=== PATIENT | female | born 2000 | race Caucasian/White ===

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

== ENCOUNTER 2022-04-05 11:13 | Emergency (ER) | payer OTHER, SELFPAY ==
--- NOTE | 2022-04-05 11:19 | ED.URI ---
HPI - URI/Sore Throat General Chief Complaint: Upper Respiratory Infection Stated Complaint: white patches in throat Time Seen by Provider: 04/05/22 11:28 Source: patient, RN notes reviewed and old records reviewed Mode of arrival: ambulatory Limitations: no limitations History of Present Illness HPI Narrative: 22-year-old female who is 39 weeks presents to the [facility] with complaints of a sore throat. Had been evaluated at [facility] ER, [employer] yesterday and states that nothing was done for me. Reports that she tested negative for flu, strep, COVID in the ER. Reports that she did see her OB yesterday no complications with the . Is due to be induced this weekend. MD elicited complaint: sore throat Related Data Home Medications Medication Instructions Recorded Confirmed ondansetron 4 mg disintegrating 4 mg QID 04/05/22 04/05/22 tablet vits 75-iron 28 mg-folic 1 pkg PO DAILY 04/05/22 04/05/22 acid 800 mcg-omega3 440 mg oral pack Allergies Allergy/AdvReac Type Severity Reaction Status Date / Time trazodone Allergy Intermediate Swelling Verified 04/05/22 12:07 Review of Systems Review of Systems: All systems reviewed & are unremarkable except as noted in HPI and below Constitutional: Constitutional: Reports no additional constitutional complaints, Denies chills and Denies fever(s) Eyes: Eyes: Reports no additional eye complaints ENT: Reports as per HPI and Reports sore throat Cardiovascular: Cardiovascular: Reports no additional cardiovascular complaints Respiratory: Respiratory: Reports no additional respiratory complaints Gastrointestinal: Gastrointestinal: Reports no additional gastrointestinal complaints Musculoskeletal: Musculoskeletal: Reports no additional musculoskeletal complaints Integumentary/Breasts: Skin/Breast: Reports system reviewed and no additional complaints, except as docu Neurologic: Reports system reviewed and no additional complaints, except as documented Psychiatric: Psychiatric: Reports no additional psychiatric complaints Allergic/Immunologic: Allergic/Immunologic: Reports no additional allergic/immunologic complaints PMFSH Past Medical History Medical History Anxiety Depression Insomnia PTSD (post-traumatic stress disorder) Self-injurious behavior Surgical History Surgical History History of dilation and curettage Social History Social History Smoking status: Current every day smoker Tobacco type: cigarettes and e-cigarettes/vaping Alcohol intake: current Substance use: current Substance use type: marijuana Comments At the time of my signature, I reviewed and agree with the nursing past medical, surgical, social, and family history. There is no relevant family history pertinent to the patient complaint. Exam Const: General: healthy appearing, no acute distress and alert Nutritional Appearance: well nourished Orientation/consciousness: patient oriented x3 Limitations: no limitations HENMT: Head: normal to inspection Ears: hearing grossly normal bilaterally, external ears normal and TM's normal bilaterally General nose exam: Normal external nose present, Normal nares present and Normal nasal mucous membranes and turbinates present Mouth: Yes Normal oral and palatal mucosa present Throat: tonsils normal, uvula midline, posterior oropharynx abnormal other (white patches roof of mouth and left tonsil); no edema and no erythema and no uvular edema Throat image: 1. patchy white areas without increased erythema or swelling 2. Left tonsil white patchy areas without increased erythema or swelling Eyes: General: appearance normal, both eyes and all related structures Conjunctivae: conjunctivae normal Pupils: Equal, round and reactive pupils present Neck: Neck: normal visual inspection, no lymphad
[2022-04-05 11:28] VITALS: BP 117/70; PULSE 103; RESP 18; TEMP 36.4; O2SAT 98
== END 2022-04-05 12:16 | disposition home or self-care (01) ==
PROVIDERS: Emergency Provider Nurse Practitioner; PCP Obstetrics & Gynecology
DX: O90.89 Other complications of the puerperium, not elsewhere classified (principal); B37.0 Candidal stomatitis; O99.330 Smoking (tobacco) complicating pregnancy, unspecified trimester; Z3A.39 39 weeks gestation of pregnancy; F17.290 Nicotine dependence, other tobacco product, uncomplicated
CPT/HCPCS: 36416; 86308; 87081; 87880; 99213; G0463

== ENCOUNTER 2022-04-12 17:50 | Observation (INO) | payer OTHER, SELFPAY ==
[2022-04-12] VITALS (7 sets, daily range): BP systolic 114–136; BP diastolic 74–93; PULSE 92–116; BMI 36.8
[2022-04-12] MEDS: LACTATED RINGERS 1,000 ML 999 ML IV CONT (19:24)
--- NOTE | 2022-04-12 19:35 | OBADM ---
This patient, Dorcas Queen, admitted to the OB room Labor/Delivery/Recovery 106 for observation. Patient/family oriented to hospital policies and general routines including ID bracelet, bed and alarms, visiting hours, pain management, procedures, bathroom and other care routines, personal items, smoking policy, room service/diet, and visiting hours. Patient/Family are encouraged to report perceived risks to care and to ask questions if they do not understand what they are told or what they should do.
--- NOTE | 2022-05-14 08:16 | PM.OBTRLD ---
OB - Triage/Final Diagnosis Visit Information Comments/Additional reasons for admission: I have assessed the risk for this patient, Dorcas Queen, and determined that she would benefit from observation care. Final Diagnosis (1) False labor: Code(s): O47.9 - False labor, unspecified Status: Acute
== END 2022-04-12 20:49 | disposition home or self-care (01) ==
PROVIDERS: Admitting Provider Obstetrics & Gynecology; Visit Provider Obstetrics & Gynecology
DX: O47.1 False labor at or after 37 completed weeks of gestation (principal); Z3A.39 39 weeks gestation of pregnancy
CPT/HCPCS: 84112; G0378; G0379; J7120

== ENCOUNTER 2022-04-13 15:38 | Inpatient (IN) | payer OTHER, SELFPAY ==
[2022-04-13] VITALS (114 sets, daily range): BP systolic 86–141; BP diastolic 53–98; PULSE 95–142; RESP 16–18; TEMP 36.9–37.1; O2SAT 94–100; BMI 37.0
--- NOTE | 2022-04-13 16:18 | LDADM ---
This patient, Dorcas Queen, was admitted to Labor/Delivery/Recovery 104 on 04/13/22 at 15:38. Plans for labor, pain management and were discussed with patient. Patient/family oriented to hospital policies and general routines including ID bracelet, bed and alarms, visiting hours, pain management, procedures, bathroom and other care routines, personal items, smoking policy, room service/diet and guest tray routines, security routines, and visiting hours. Patient/Family are encouraged to report perceived risks to care and to ask questions if they do not understand what they are told or what they should do. See OBIX for further documentation.
[2022-04-13 16:28] LABS: Basophils Absolute Auto 0.1 K/mm3 (0.0-0.1); Basophils Percent Auto 0.3 % (0.2-1.2); Eosinophils Absolute Auto 0.1 K/mm3 (0-0.3); Eosinophils Percent Auto 0.5 % (0-4.4); Hematocrit 38.6 % (37.0-47.0); Hemoglobin 13.2 g/dL (12.0-15.0); Immature Granulocyte Percent A 0.6 % (0-0.5); Lymphocytes Percent Auto 14.5 % (18.3-44.2); Mean Corpuscular HGB Conc 34.2 g/dl (32-36); Mean Corpuscular Hemoglobin 31.6 pg (26-34); Mean Corpuscular Volume 92.3 fl (80-100); Mean Platelet Volume 9.7 fl (7.4-10.4); Monocytes Absolute Auto 1.3 K/mm3 (0.1-0.6); Monocytes Percent Auto 7.5 % (2.6-8.5); Neutrophils Absolute Auto 13.2 K/mm3 (1.3-6.7); Neutrophils Percent Auto 76.6 % (45.5-73.1); Platelet Count Result 255 k/mm3 (150-375); Red Blood Count 4.18 M/mm3 (4.2-5.4); Red Cell Distribution Width 12.9 % (11.5-14.5); White Blood Count 17.2 K/mm3 (4.5-10.0)
[2022-04-13 16:44] LABS: Hemoglobin A1C 4.9 % (<5.7)
[2022-04-13] MEDS: LACTATED RINGERS 1,000 ML 125 ML IV CONT ×2 (17:04→19:44)
[2022-04-13] MEDS: OXYTOCIN 30 UNITS/NS 500 ML 30 UNITS/500 ML BAG 6 UNITS IV CONT (17:05)
[2022-04-13] MEDS: AMPICILLIN 2 GM/NS 100 ML 2 GM/100 ML BAG IVPB (17:05)
[2022-04-13 17:19] LABS: Glucose Point of Care 78 mg/dl (65-105)
[2022-04-13] MEDS: fentaNYL CITRATE INJ (*CRX) 100 MCG/2 ML VIAL 50 MCG IV PUSH ×2 (18:15→18:25)
--- NOTE | 2022-04-13 18:52 | WPDANESEPP ---
Anes - Eval Pre Procedure Procedure: labor epidural Date/Time: 04/13/22 18:52 Surgeon: miri Pre Op Diagnosis: Labor Patient Data Age: 22 Gender: F Height: 1.75 m Weight: 114 kg Last Vital Signs Temp 36.9 C 04/13/22 18:00 Pulse 110 H 04/13/22 18:30 BP 129/98 H 04/13/22 18:30 Pulse Ox 100 04/13/22 18:47 O2 Del Method Room Air 04/13/22 16:07 Allergies Allergy/AdvReac Type Severity Reaction Status Date / Time trazodone Allergy Intermediate Swelling Verified 04/12/22 18:33 Home Medications Medication Instructions Recorded Confirmed Type ondansetron 4 mg disintegrating 4 mg QID 04/05/22 04/05/22 History tablet vits 75-iron 28 mg-folic 1 pkg PO DAILY 04/05/22 04/05/22 History acid 800 mcg-omega3 440 mg oral pack Laboratory Tests 04/13/22 04/13/22 04/13/22 16:24 16:24 16:24 WBC 17.2 K/mm3 H K/mm3 (4.5-10.0) RBC 4.18 M/mm3 L M/mm3 (4.2-5.4) Hgb 13.2 g/dL g/dL (12.0-15.0) Hct 38.6 % % (37.0-47.0) MCV 92.3 fl fl (80-100) MCH 31.6 pg pg (26-34) MCHC 34.2 g/dl g/dl (32-36) RDW 12.9 % % (11.5-14.5) Plt Count 255 k/mm3 k/mm3 (150-375) MPV 9.7 fl fl (7.4-10.4) Immature Gran % (Auto) 0.6 % H % (0-0.5) Neut % (Auto) 76.6 % H % (45.5-73.1) Lymph % (Auto) 14.5 % L % (18.3-44.2) Marin % (Auto) 7.5 % % (2.6-8.5) Eos % (Auto) 0.5 % % (0-4.4) Baso % (Auto) 0.3 % % (0.2-1.2) Lymph # (Auto) 2.50 K/mm3 K/mm3 (0.9-3.2) Marin # (Auto) 1.3 K/mm3 H K/mm3 (0.1-0.6) Eos # (Auto) 0.1 K/mm3 K/mm3 (0-0.3) Baso # (Auto) 0.1 K/mm3 K/mm3 (0.0-0.1) Abs Immat Gran (auto) 0.10 K/mm3 H K/mm3 (0.00-0.031) Absolute Neuts (auto) 13.2 K/mm3 H K/mm3 (1.3-6.7) Absolute Nucleated RBC 0.0 K/mm3 K/mm3 (0.0-0.012) Nucleated RBC % 0.0 % % (0.0-0.2) POC Capillary Glucose Hemoglobin A1c RPR Pending Blood Type A Positive Antibody Screen Negative 04/13/22 04/13/22 16:24 17:16 WBC RBC Hgb Hct MCV MCH MCHC RDW Plt Count MPV Immature Gran % (Auto) Neut % (Auto) Lymph % (Auto) Marin % (Auto) Eos % (Auto) Baso % (Auto) Lymph # (Auto) Marin # (Auto) Eos # (Auto) Baso # (Auto) Abs Immat Gran (auto) Absolute Neuts (auto) Absolute Nucleated RBC Nucleated RBC % POC Capillary Glucose 78 mg/dl mg/dl (65-105) Hemoglobin A1c 4.9 % % (<5.7) RPR Blood Type Antibody Screen Patient hx anesthesia problems: none Family hx anesthesia problems: none Results Review: All pre-operative results and documents have been reviewed as part of the pre-operative evaluation. [facility] Past Medical History Medical History Anxiety Depression Insomnia PTSD (post-traumatic stress disorder) Self-injurious behavior Surgical History Surgical History History of dilation and curettage Social History Social History Smoking packs per day: 0.5 Smoking cigarettes per day: 10.0 Smoking status: Current every day smoker Tobacco type: cigarettes Alcohol intake: current Substance use: current Substance use type: marijuana Spiritual care concerns: No Exam Day of Procedure 04/13/22 18:52
[2022-04-13] MEDS: AMPICILLIN 1 GM/NS 50 ML 1 GM/50 ML BAG IVPB (21:14)
[2022-04-13 21:27] LABS: Glucose Point of Care 109 mg/dl (65-105)
[2022-04-13 21:49] LABS: Amphetamine Screen Urine Negative (Negative); Barbiturate Screen Urine Negative (Negative); Benzodiazepines Screen Urine Negative (Negative); Cannabinoid Screen Urine Positive (Negative); Cocaine Screen Urine Negative (Negative); Methadone Screen Urine Negative (Negative); Opiate Screen Urine Negative (Negative); Phencyclidine Screen Urine Negative (Negative)
[2022-04-14] VITALS (258 sets, daily range): BP systolic 89–137; BP diastolic 41–90; PULSE 79–139; RESP 15–24; TEMP 36.2–36.9; O2SAT 89–100
[2022-04-14] MEDS: diphenhydrAMINE HCl INJ 50 MG/ML VIAL 25 MG IV PUSH (00:29)
[2022-04-14] MEDS: AMPICILLIN 1 GM/NS 50 ML 1 GM/50 ML BAG IVPB ×5 (01:06→16:53)
[2022-04-14 01:19] LABS: Glucose Point of Care 89 mg/dl (65-105)
[2022-04-14] MEDS: CALCIUM CARBONATE (TUMS) 500 MG (200 MG ELEMENTAL) 1000 MG PO (02:40)
[2022-04-14] MEDS: CALCIUM CARBONATE (TUMS) 500 MG (200 MG ELEMENTAL) 1000 MG (03:00)
[2022-04-14] MEDS: LACTATED RINGERS 1,000 ML 125 ML IV CONT ×2 (03:35→15:28)
[2022-04-14] MEDS: ONDANSETRON INJ 4 MG/2 ML VIAL IV PUSH ×2 (03:35→17:06)
[2022-04-14 05:05] LABS: Glucose Point of Care 91 mg/dl (65-105)
[2022-04-14 09:12] LABS: Glucose Point of Care 114 mg/dl (65-105)
[2022-04-14 13:06] LABS: Glucose Point of Care 126 mg/dl (65-105)
[2022-04-14 17:04] LABS: Glucose Point of Care 87 mg/dl (65-105)
--- NOTE | 2022-04-14 19:09 | WPDANESEPP ---
Anes - Eval Pre Procedure Procedure: primary c/s Date/Time: 04/14/22 19:09 Surgeon: miri Pre Op Diagnosis: Labor Patient Data Age: 22 Gender: F Height: 1.75 m Weight: 114 kg Last Vital Signs Temp 36.4 C L 04/14/22 18:30 Pulse 113 H 04/14/22 18:19 Resp 16 04/14/22 05:11 BP 121/62 04/14/22 18:19 Pulse Ox 100 04/14/22 19:06 O2 Del Method Room Air 04/13/22 16:07 Allergies Allergy/AdvReac Type Severity Reaction Status Date / Time trazodone Allergy Intermediate Swelling Verified 04/12/22 18:33 Home Medications Medication Instructions Recorded Confirmed Type ondansetron 4 mg disintegrating 4 mg QID 04/05/22 04/05/22 History tablet vits 75-iron 28 mg-folic 1 pkg PO DAILY 04/05/22 04/05/22 History acid 800 mcg-omega3 440 mg oral pack Laboratory Tests 04/13/22 04/13/22 04/14/22 21:20 21:23 01:12 POC Capillary Glucose 109 mg/dl H mg/dl 89 mg/dl mg/dl (65-105) (65-105) Urine Opiates Screen Negative (Negative) Urine Methadone Screen Negative (Negative) Ur Barbiturates Screen Negative (Negative) Ur Phencyclidine Scrn Negative (Negative) Ur Amphetamine Screen Negative (Negative) U Benzodiazepines Scrn Negative (Negative) Urine Cocaine Screen Negative (Negative) U Cannabinoids Screen Positive A (Negative) 04/14/22 04/14/22 04/14/22 05:02 08:59 13:03 POC Capillary Glucose 91 mg/dl mg/dl 114 mg/dl H mg/dl 126 mg/dl H mg/dl (65-105) (65-105) (65-105) Urine Opiates Screen Urine Methadone Screen Ur Barbiturates Screen Ur Phencyclidine Scrn Ur Amphetamine Screen U Benzodiazepines Scrn Urine Cocaine Screen U Cannabinoids Screen 04/14/22 17:02 POC Capillary Glucose 87 mg/dl mg/dl (65-105) Urine Opiates Screen Urine Methadone Screen Ur Barbiturates Screen Ur Phencyclidine Scrn Ur Amphetamine Screen U Benzodiazepines Scrn Urine Cocaine Screen U Cannabinoids Screen Patient hx anesthesia problems: none Family hx anesthesia problems: none Results Review: All pre-operative results and documents have been reviewed as part of the pre-operative evaluation. PMFSH Past Medical History Medical History Anxiety Depression Insomnia PTSD (post-traumatic stress disorder) Self-injurious behavior Surgical History Surgical History History of dilation and curettage Social History Social History Smoking packs per day: 0.5 Smoking cigarettes per day: 10.0 Smoking status: Current every day smoker Tobacco type: cigarettes Alcohol intake: current Substance use: current Substance use type: marijuana Spiritual care concerns: No Exam Day of Procedure 04/14/22 19:09
--- NOTE | 2022-04-14 19:11 | PM.IMHP ---
H&P: HPI History of Present Illness Date/Time: 04/14/22 19:11 Chief Complaint: Term Narrative: this patient is a 22-year-old 1 at 40 weeks gestation at 40 weeks gestation who presented for spontaneous rupture membranes. Augmentation and initiation of labor was applied medically. Patient never got into active labor. The patient is requesting delivery. She denies any headache, blurry vision, epigastric pain. She denies any worsening of her swelling. She denies any chest pain or shortness of breath. She denies any nausea, vomiting, fever, chills. She understands risk of delivery. She understands that injuries may occur that result in hospitalization, more surgery, severe illness. She understands there is a risk of hemorrhage infection. Review of Systems Review of Systems: All systems reviewed & are unremarkable except as noted in HPI and below Constitutional: Constitutional: Denies chills, Denies fatigue, Denies fever(s) and Denies weakness Eyes: Eyes: Denies blurry vision, Denies change in vision, Denies loss of peripheral vision, Denies loss of vision, Denies other visual disturbances and Denies eye pain ENT: Denies vertigo, Denies dizziness, Denies hearing loss, Denies mouth pain, Denies nasal obstruction, Denies neck mass and Denies neck pain Cardiovascular: Cardiovascular: Denies chest pain, Denies diaphoresis, Denies syncope, Denies leg edema and Denies dyspnea Respiratory: Respiratory: Denies chest congestion, Denies cough, Denies hemoptysis, Denies dyspnea and Denies wheezing Gastrointestinal: Gastrointestinal: Denies abdominal pain, Denies constipation, Denies diarrhea, Denies nausea and Denies vomiting Genitourinary: Genitourinary: Denies hematuria, Denies change in libido, Denies nocturia, Denies genital lesions, Denies flank pain and Denies urinary urgency Musculoskeletal: Musculoskeletal: Denies abnormal gait, Denies back pain, Denies myalgias, Denies arthralgias, Denies joint swelling, Denies muscle weakness and Denies neck pain Integumentary/Breasts: Skin/Breast: Denies swelling, Denies breast pain, Denies breast mass, Denies dry skin, Denies nipple discharge, Denies unusual bruising and Denies jaundice Neurologic: Denies Neuro-related abnormal movements, Denies Abnormal speech present, Denies abnormal gait, Denies behavioral changes, Denies confusion, Denies vertigo, Denies dizziness, Denies syncope, Denies loss of vision, Denies memory loss, Denies convulsions and Denies weakness Psychiatric: Psychiatric: Denies abnormal sleep pattern, Denies behavioral changes, Denies change in libido, Denies confusion, Denies depression, Denies anhedonia and Denies memory loss Endocrine: Endocrine: Reports no additional endocrine complaints, Denies change in libido and Denies fatigue Hematologic/Lymphatic: Hematologic/Lymphatic: Reports no additional hematologic/lymphatic complaints Allergic/Immunologic: Allergic/Immunologic: Reports no additional allergic/immunologic complaints and Denies wheezing PMFSH Past Medical History Medical History Anxiety Depression Insomnia PTSD (post-traumatic stress disorder) Self-injurious behavior Surgical History Surgical History History of dilation and curettage Social History Social History Smoking packs per day: 0.5 Smoking cigarettes per day: 10.0 Smoking status: Current every day smoker Tobacco type: cigarettes Alcohol intake: current Substance use: current Substance use type: marijuana Spiritual care concerns: No Meds Home Medications and Allergies Home Medications Medication Instructions Recorded Confirmed Type ondansetron 4 mg disintegrating 4 mg QID 04/05/22 04/05/22 History tablet vits 75-iron 28 mg-folic 1 pkg PO DAILY 04/05/22 04/05/22 History acid 800 mcg-omega3 440 mg oral pack
--- NOTE | 2022-04-14 19:18 | WPDHPUPDATE1 ---
History and Physical Update Update Date/Time: 04/14/22 19:18 History and Physical has been reviewed, including an updated exam of the patient. There are NO changes in the patient's condition. Risks, benefits, and alternatives have been discussed and questions answered. Patient agrees to proceed with procedure.
[2022-04-14] MEDS: ceFAZolin 2 GM/D5W 50 ML 2 GM/50 ML BAG IVPB (19:30)
[2022-04-14] MEDS: OXYTOCIN 30 UNITS/NS 500 ML 30 UNITS/500 ML BAG 125 UNITS IV CONT (20:35)
--- NOTE | 2022-04-14 20:36 | P.OP_ITS ---
Procedure Note - Detailed Date of Procedure 04/14/22 Pre-op Diagnosis Labor , failed induction of labor Post-op Diagnosis Same Procedure Performed Low-transverse section Surgeon Nba Hernandez MD Anesthesia Spinal Indications failed induction of labor, patient preference Findings Normal gestational maternal anatomy, average size , normal Apgars. Description of Procedure The patient was taken the operating room. She was prepped and draped in dorsal supine position with a leftward tilt. This was done after spinal anesthetic was applied. A low-transverse skin incision was made and carried down till of the fascia with the knife. The fascial incision was made with the knife. The fascial incision was extended laterally with Zambrano scissors. The fascia was tented upward superiorly and inferiorly the rectus muscles were dissected off bluntly. The rectus muscles were the midline. The preperitoneal fat and peritoneum were dissected open bluntly at the superior aspect of the separa david rectus muscles. The peritoneal incision was extended superior and inferior with good position of bladder. The uterine incision was made with a scalpel down to the level of the amniotic cavity. The amniotic cavity was entered bluntly. The infant was delivered. The cord was clamped and cut and the was handed off to waiting pediatric staff. Cord bloods were obtained. The placenta was removed manually. The uterus was exteriorized. The uterus was cleared of all clots, debris and membranes. The uterus was closed in 0 Vicryl running lock fashion. An imbricating over a was placed along the incision line as well. The uterus was returned to the abdomen. The gutters were cleared of all clots and debris. The fascia was closed with 0 Vicryl running fashion. The subcutaneous tissue was irrigated pinpoint bleeders were cauterized. The skin was closed with subcuticular absorbable dm. The skin incision line was covered with glue. The patient tolerated the procedure well. She has taken recovery room in stable condition. Sponge lap and needle counts were correct x2. Complications No immediate complications Condition Stable Disposition PACU
[2022-04-14] MEDS: fentaNYL CITRATE INJ (*CRX) 100 MCG/2 ML VIAL 25 MCG IV PUSH ×7 (21:29→22:55)
--- NOTE | 2022-04-14 23:05 | PC.NURSE ---
Benadryl 25mg IVP given while in recovery.
--- NOTE | 2022-04-14 23:09 | PC.NURSE ---
Transferred to bed from stretcher with assist of 2 nurses and use of Maxi Air. Anxious, agitated, with clenched fists. Refused assessment. Educated on fundal checks and monitoring of vaginal bleeding . Stated, No one is touching me. I'm in too much pain. Time spent at bedside. Explained pain management and plan of care. Discussed interventions prior to completing them. Significant other and friend at bedside providing support.
--- NOTE | 2022-04-14 23:09 | ADMGEN ---
This patient, Dorcas Queen, was admitted to OB 2nd Floor Room 282-00. Patient/family oriented to hospital policies and general routines including ID bracelet, bed and alarms, visiting hours, pain management, procedures, bathroom and other care routines, personal items, smoking policy, room service/diet, and visiting hours. Information on how to activate the Rapid Response Team has been discussed. Patient/Family are encouraged to report perceived risks to care and to ask questions if they do not understand what they are told or what they should do.
[2022-04-14] MEDS: SIMETHICONE 80 MG TAB.CHEW (23:43)
[2022-04-14] MEDS: HYDROcodone/acetaminophen (*CRX) 10-325 MG TABLET 1 TAB (23:43)
[2022-04-14] MEDS: KETOROLAC 30 MG/ML VIAL (*BKC) (23:44)
[2022-04-15] VITALS (7 sets, daily range): BP systolic 103–130; BP diastolic 66–83; PULSE 91–112; RESP 16–20; TEMP 36.2–37.3; O2SAT 98–99
--- NOTE | 2022-04-15 00:40 | PC.NURSE ---
Reported relief felt from pain medication. Attempted to do fundal check since pain was controlled, and patient refused. Stated, I'll hit a nurse. I don't want to hit you. Clenched fists noted. Time spent at bedside.
[2022-04-15] MEDS: SIMETHICONE 80 MG TAB.CHEW PO ×4 (04:31→17:42)
[2022-04-15] MEDS: HYDROcodone/acetaminophen (*CRX) 10-325 MG TABLET 1 TAB PO ×5 (04:31→23:03)
[2022-04-15 05:27] LABS: Basophils Absolute Auto 0.1 K/mm3 (0.0-0.1); Basophils Percent Auto 0.3 % (0.2-1.2); Eosinophils Percent Auto 0.1 % (0-4.4); Hematocrit 36.6 % (37.0-47.0); Hemoglobin 12.1 g/dL (12.0-15.0); Immature Granulocyte Absolute 0.11 K/mm3 (0.00-0.031); Immature Granulocyte Percent A 0.5 % (0-0.5); Lymphocytes Absolute Auto 1.93 K/mm3 (0.9-3.2); Lymphocytes Percent Auto 9.2 % (18.3-44.2); Mean Corpuscular HGB Conc 33.1 g/dl (32-36); Mean Corpuscular Hemoglobin 31.5 pg (26-34); Mean Corpuscular Volume 95.3 fl (80-100); Mean Platelet Volume 10.1 fl (7.4-10.4); Monocytes Absolute Auto 1.4 K/mm3 (0.1-0.6); Monocytes Percent Auto 6.9 % (2.6-8.5); Neutrophils Absolute Auto 17.3 K/mm3 (1.3-6.7); Platelet Count Result 218 k/mm3 (150-375); Red Blood Count 3.84 M/mm3 (4.2-5.4); White Blood Count 20.9 K/mm3 (4.5-10.0)
[2022-04-15] MEDS: IBUPROFEN 600 MG TABLET PO ×3 (05:29→17:43)
[2022-04-15] MEDS: DOCUSATE SODIUM 100 MG CAPSULE PO ×2 (08:17→17:42)
[2022-04-15] MEDS: MULTIVIT/MIN/PREN/FOL AC/IRON TABLET 1 TAB PO (08:17)
--- NOTE | 2022-04-15 08:40 | PM.OBPNVD ---
OB - PN: Subj Subjective Date/time seen: 04/15/22 08:40 Patient comments: no complaints, pain well controlled, tolerating diet and flatus present OB - PN: Obj Data Labs CBC & Chem 7: 04/13/22 16:24 Labs: Laboratory Results - last 24 hr 04/14/22 04/14/22 04/14/22 08:59 13:03 17:02 POC Capillary Glucose 114 H 126 H 87 OB - PN A/P Plan day: 1 Comments: Post Op LTCS - no problems, routine recovery Time Spent With Patient Time: Total time spent is greater than 50% in coordination of care (as documented) at patient's floor/unit and/or counseling patient: Exam Const: General: cooperative, healthy appearing, comfortable and no acute distress Resp: Auscultation: no crackles, no rales, no rhonchi and no wheezes Cardio: Rhythm: regular rhythm Heart sounds: no click and no murmurs GI: Inspection: non-distended Auscultation: normal bowel sounds Extrem: General: normal to inspection, no pedal edema and no calf tenderness
--- NOTE | 2022-04-15 10:50 | PCCCNOTE ---
Received referral. Spoke to RN. Met with pt. and her parents at bedside. Pt. lives with father of baby/her significant other and plans to return home with him and at discharge. Her parents are supportive. She confirms having all needed items and supplies to care for including bassinet and car seat for transport home. Have provided resources and encouraged she contact any/all of interest. She confirms being on WIC and having Link. She has [employer] insurance. Diagnosis of anxiety, depression, PTSD and self cutting behavior listed in history and physical. History of suicide attempts on referral. Pt. and her parents confirm last hospitalization for mental health at age 10. Pt. no longer follows up with psychiatrist however, saw Dr. Lockett in the past and would contact again. Have provided counseling resources for her review as well. Nursing indicates that she does not take any medications for mental health. Pt. confirms using marijuana for anxiety and recent nausea; UDS positive for same. She obtains marijuana from local dispensary. She indicates having discussed same with OBGYN during . She does not have PMD and indicates difficulty finding PMD to accept her insurance as well as taking new pt.'s. Have provided resources for area clinics and encouraged she contact any/all of interest. She denies any history with DCFS. I have reported all above to DCFS. Her situation does not qualify for investigation however meets criteria for child welfare referral to offer services/provide support. Pt. is aware and in agreement with same. Intake ID#[id number]. At this time, no further care coordination needs indicated.
--- NOTE | 2022-04-15 11:02 | WPDANLDNPN2 ---
Anes-Prog Note L&D-Neuraxial Date/Time: 04/15/22 11:02 Neuraxial medications: epidural PF morphine Opiod-related complaints: none Patient feedback: Patient satisfied with post-operative pain management.
--- NOTE | 2022-04-15 11:06 | WPDANLDPN2 ---
Anes-Prog Note L&D Date/Time: 04/15/22 11:06 Comfortable throughout: labor, delivery and section Neuraxial method: epidural Epidural/Spinal procedure site: clean & non-tender Neuro status: Neuro function grossly intact. Vital Signs: Last Vital Signs Temp 36.9 C 04/15/22 07:40 Pulse 102 H 04/15/22 07:40 Resp 20 04/15/22 07:40 BP 108/68 04/15/22 07:40 Pulse Ox 99 04/15/22 07:40 O2 Del Method Room Air 04/15/22 04:20 Pain score (VAS): 0 I/O: Intake & Output 04/14/22 04/15/22 04/15/22 23:59 07:59 15:59 Intake Total 340 1980 240 Output Total 1780 650 Balance -1440 1330 240 Patient feedback: Patient satisfied with anesthetic care.
--- NOTE | 2022-04-15 11:24 | PC.NURSE ---
[id number] Introductions were made, then consulted with patient to assess needs related to . Mother led the conversation with her experience feeding her so far and states she would like to try . mother with a remarkable health history has her parents here supporting her and infant has been bottlefeeding since related to mother's C/S and the pain that comes with recovery. Positioning for comfort was suggested for working with learning to breastfeed and mother declines moving to a chair or adjusting back in bed. Mother chooses to sit on the side of the bed to learn to breastfeed for the first time since delivery. Foot stool was used to assist with comfort. Mother works well with her with encouragement and education. Encouraged understanding of the benefits of skin to skin (unwrapping infant and placing vertically on her chest), responsive feeding and how to watch for early feeding signs, frequency of feeding on demand about every 8-12 times in 24 hours (every 2-3 hours), milk production, duration of feeding, signs of adequate intake/output and how to record on the feeding sheet. Reviewed positioning and ear, shoulder, hip alignment, supporting the breast, asymmetrical latch (off-center), and leading with the chin with a big open side gape. latched optimally to the left breast in cross cradle position with big,open, wide gape takes a suck or two, then comes off the breast. Several attempts were made and doesn't maintain latch at this time. Attempted to latch infant to the right breast using football positioning. doesn't latch. Mother states she is overwhelmed and wants to pump and request RN to get her a pump. Mother is standing at bedside holding and rocking infant. Breast pump provided due to ineffective and mother's request. Instructions given on cleaning, care, usage, that there should be no pain, pumping schedule for milk production, collection, and storage of human milk. Patient and her mother are encouraged to record pumping schedule on the feeding sheet. Patient educated on stimulation for adequate milk production every 3 hours (8 times in 24 hours). Mother voiced understanding of the education shared along with mom and baby guide for additional resource information and maternal mother is encouraging. Patient decided she wanted more time and didn't want to pump at this time but would like a pump to go home with. Mother voiced understanding of education and to call when she is ready to learn more about pumping and get flange size assessed. Reported to the primary RN.
[2022-04-15 12:01] LABS: Rapid Plasma Reagin Non-Reactive (NonReactive)
[2022-04-15] MEDS: polyethylene glycoL 3350 17 GM POWD.PACK (23:22)
[2022-04-16] MEDS: IBUPROFEN 600 MG TABLET PO ×4 (00:05→20:59)
[2022-04-16] MEDS: ZOLPIDEM TARTRATE (*CRX) 5 MG TABLET PO (00:06)
[2022-04-16] MEDS: HYDROcodone/acetaminophen (*CRX) 10-325 MG TABLET 1 TAB PO ×7 (02:03→20:58)
[2022-04-16 07:30] VITALS: PULSE 101; RESP 18; O2SAT 100
--- NOTE | 2022-04-16 07:47 | P.PNOB_ITS ---
OB - PN: Subj Subjective Date/time seen: 04/16/22 07:47 Patient comments: no complaints, pain well controlled, incisional pain, tolerating diet and flatus present OB - PN: Obj Data Labs CBC & Chem 7: 04/15/22 04:30 Labs: Laboratory Results - last 24 hr 04/13/22 04/15/22 16:24 04:30 WBC 20.9 H RBC 3.84 L Hgb 12.1 Hct 36.6 L MCV 95.3 MCH 31.5 MCHC 33.1 RDW 13.0 Plt Count 218 MPV 10.1 Immature Gran % (Auto) 0.5 Neut % (Auto) 83.0 H Lymph % (Auto) 9.2 L Jennings % (Auto) 6.9 Eos % (Auto) 0.1 Baso % (Auto) 0.3 Lymph # (Auto) 1.93 Jennings # (Auto) 1.4 H Eos # (Auto) 0.0 Baso # (Auto) 0.1 Abs Immat Gran (auto) 0.11 H Absolute Neuts (auto) 17.3 H Absolute Nucleated RBC 0.0 Nucleated RBC % 0.0 RPR Non-reactive OB - PN A/P Plan day: 2 Plan: routine care Comments: POD#2 LTCS - no problems, Time Spent With Patient Time: Total time spent is greater than 50% in coordination of care (as documented) at patient's floor/unit and/or counseling patient: Exam Const: General: comfortable, no acute distress and alert Resp: Effort & Inspection: normal respiratory effort Auscultation: no crackles, no rales and no rhonchi Cardio: Rate: regular rate Heart sounds: no click, no murmurs and no rubs GI: Inspection: non-distended GI Palp: No Tenderness to palpation present (GI) Auscultation: normal bowel sounds Other: Incision - CDI Extrem: General: normal to inspection, no pedal edema and no calf tenderness
[2022-04-16] MEDS: SIMETHICONE 80 MG TAB.CHEW PO ×2 (07:50→14:40)
[2022-04-16] MEDS: polyethylene glycoL 3350 17 GM POWD.PACK PO (07:51)
[2022-04-16] MEDS: MULTIVIT/MIN/PREN/FOL AC/IRON TABLET 1 TAB PO (07:51)
[2022-04-16] MEDS: DOCUSATE SODIUM 100 MG CAPSULE PO ×2 (07:51→18:01)
[2022-04-16 07:55] VITALS: BP 135/84; PULSE 101; RESP 18; TEMP 36.3; O2SAT 100
[2022-04-16 19:40] VITALS: BP 130/82; PULSE 97; RESP 20; TEMP 36.2
--- NOTE | 2022-04-17 | PC.NURSE ---
Patient viewed the discharge video Mother & Baby Care, The First Two Weeks . Patient was given the opportunity and encouraged to ask questions. Patient verbalized understanding of information shared and has been given the mother/baby guide for home reference.
[2022-04-17] MEDS: HYDROcodone/acetaminophen (*CRX) 10-325 MG TABLET 1 TAB PO ×4 (00:05→08:58)
[2022-04-17] MEDS: IBUPROFEN 600 MG TABLET PO ×2 (03:03→08:58)
--- NOTE | 2022-04-17 07:46 | PM.OBPNVD ---
OB - PN: Subj Subjective Date/time seen: 04/17/22 07:46 Patient comments: no complaints, pain well controlled, incisional pain, tolerating diet and flatus present OB - PN: Obj Data Labs CBC & Chem 7: 04/15/22 04:30 OB - PN A/P Plan day: 2 Plan: routine care Comments: POD#2 LTCS - no problems, Time Spent With Patient Time: Total time spent is greater than 50% in coordination of care (as documented) at patient's floor/unit and/or counseling patient: Exam Const: General: comfortable, no acute distress and alert Resp: Effort & Inspection: normal respiratory effort Auscultation: no crackles, no rales and no rhonchi Cardio: Rate: regular rate Heart sounds: no click, no murmurs and no rubs GI: Inspection: non-distended GI Palp: No Tenderness to palpation present (GI) Auscultation: normal bowel sounds Other: Incision - CDI Extrem: General: normal to inspection, no pedal edema and no calf tenderness
--- NOTE | 2022-04-17 07:46 | PM.OBDSVD ---
DS: Admitting Diagnosis Discharge Date 04/17/22 Admitting Diagnosis pelvic rest DS: Discharge Diagnosis Discharge Diagnosis (1) delivery delivered: Code(s): O82 - Encounter for delivery without indication Status: Acute OB - DS: Summary OB Procedures : None OB Procedures Intrapartum: OB Procedures: : None Peripartum Data Procedures: Procedures Operation Date: 04/14/22 19:25 Actual Procedure Side Surgeon p Section Bilateral Nba Hernandez MD Time Spent with Patient Time attestation: Total time spent providing and/or coordinating discharge services: Discharge Plan Discharge Attending physician on discharge: Nba Hernandez Discharging Clinician: Nba Hernandez Patient Disposition: Home, Self-Care Activity: pelvic rest Diet: regular Patient Instructions: Antibiotic Form Stand Alone Forms: General Discharge Information Follow-up/Referrals: Nba Hernandez MD [Physician] - Discharge Medications: New hydrocodone-acetaminophen 5-325 mg tablet 1 tablet PO Q4H PRN (Reason: pain) Qty: 25 0RF Continued ondansetron 4 mg tablet,disintegrating 4 mg QID [id number] fum-folic [id number] mg-mcg-mg Combo Pack 1 pkg PO DAILY Date of admission: 04/13/22 15:38 Primary Care Provider: UNKNOWN,DOCTOR Admitting Provider: Nba Hernandez Attending physician on admission: Nba Hernandez Condition: Stable
[2022-04-17 08:00] VITALS: PULSE 97; RESP 20; O2SAT 100
[2022-04-17 08:15] VITALS: BP 112/70; PULSE 103; RESP 18; TEMP 36.8; O2SAT 100
[2022-04-17] MEDS: DOCUSATE SODIUM 100 MG CAPSULE PO (08:56)
[2022-04-17] MEDS: MULTIVIT/MIN/PREN/FOL AC/IRON TABLET 1 TAB PO (08:56)
[2022-04-17] MEDS: polyethylene glycoL 3350 17 GM POWD.PACK PO (08:56)
== END 2022-04-17 10:45 | disposition home or self-care (01) | DRG 540 ==
LOC: ANHLDR 15:41 → ANHOB2 04-14 23:18
PROVIDERS: Admitting Provider Obstetrics & Gynecology; Visit Provider Obstetrics & Gynecology
PROC: 10D00Z1 Extraction of Products of Conception, Low, Open Approach (ICD-10-PCS; CPT 59514; principal; 2022-04-14 19:25)
DX: O42.92 Full-term premature rupture of membranes, unspecified as to length of time between rupture and onset of labor (principal); O24.429 Gestational diabetes mellitus in childbirth, unspecified control; Z37.0 Single live birth; Z3A.40 40 weeks gestation of pregnancy; O36.8330 Maternal care for abnormalities of the fetal heart rate or rhythm, third trimester, not applicable or unspecified; O61.0 Failed medical induction of labor
CPT/HCPCS: 36415; 80307; 82948; 83036; 84112; 85025; 86592; 86850; 86900; 86901; A9270; J0131; J0290; J0690; J1200; J1885; J2274; J2405; J2590; J2795; J3010; J7120

== ENCOUNTER 2022-04-19 15:04 | Observation (INO) | payer OTHER, SELFPAY ==
--- NOTE | ~2022-04-19 | CT_ITS ---
EXAMINATION: CT abdomen pelvis w con DATE: 04/20/2022 15:16 INDICATION: [id number] swelling of lower anterior abdominal wall, likely via TECHNIQUE: Computed tomography (CT) of the abdomen and pelvis was performed with intravenous contrast . Automated exposure control and iterative reconstruction technique were employed. Exam dose: 1520.4 1 mGy-cm total exam DLP. COMPARISON: None FINDINGS: There is packing material within the section wound along the lower anterior mid ab dominal wall. There is surrounding soft tissue edema of the subcutaneous fat and mild subcutaneous em physema. The soft tissue stranding extends into the labia. No drainable abscess cavity is identified. There is mild fluid collection around the mild fat-containing umbilical hernia. Enlarged uterus. There is minimal fluid in the adnexal area is and anterior and posterior cul-de-sac. No drainable abscess is identified. There is a wedge shaped area of diminished enhancement along the anterior aspect of the lower right k idney which may be due to pyelonephritis. The heart is normal size. No pericardial or pleural effusion. There is mild atelectasis at the lung b ases. The liver, gallbladder, bile ducts, spleen, pancreas, pancreatic duct, and adrenal glands and left ki dney are unremarkable. Normal caliber of the abdominal aorta. No intraperitoneal or retroperitoneal or pelvic mass lesion or adenopathy. IMPRESSION: Status post section with packing of the surgical wound and some surrounding sub cutaneous edema and emphysema, without drainable abscess cavity identified in the anterior abdominal wall Small amount of fluid in the adnexal areas and cul-de-sacs, likely expected postoperative change, wit hout evidence of drainable abscess cavity Mild edema around the fat-containing periumbilical hernia Focal diminished enhancement in the anterior lower lobe of the right kidney which may be due to acute pyelonephritis Reviewed, dictated and finalized at [facility]. Reviewed, dictated and finalized at [facility]. IMPRESSION: Status post section with packing of the surgical wound an d some surrounding subcutaneous edema and emphysema, without drainable abscess cavity identified in the anterior abdominal wall Small amount of fluid in the adnexal areas and cul-de-sacs, likely expected pos toperative change, without evidence of drainable abscess cavity Mild edema around the fat-containing periumbilical hernia Focal diminished enhancement in the anterior lower lobe of the right kidney whi ch may be due to acute pyelonephritis
--- NOTE | 2022-04-19 15:55 | ADMGEN ---
This patient, Dorcas Queen, was admitted to [facility] Surg Room 302-[address] Hernandez's office. Patient/family oriented to hospital policies and general routines including ID bracelet, bed and alarms, visiting hours, pain management, procedures, bathroom and other care routines, personal items, smoking policy, room service/diet, and visiting hours. Information on how to activate the Rapid Response Team has been discussed. Patient/Family are encouraged to report perceived risks to care and to ask questions if they do not understand what they are told or what they should do.
[2022-04-19] MEDS: HYDROcodone/acetaminophen (*CRX) 5-325 MG TABLET 2 TAB PO (16:17)
[2022-04-19 16:47] VITALS: BMI 37.6
[2022-04-19] MEDS: AMPICILLIN 2 GM/NS 100 ML 2 GM/100 ML BAG IVPB ×2 (18:11→21:08)
[2022-04-19] MEDS: DEXTROSE 5%/LACTATED RINGERS 1,000 ML 125 ML IV CONT (18:12)
[2022-04-19 18:18] LABS: Estimated CRCL calculation 173 ml/min; Estimated Glomerular Filt Rate > 60
[2022-04-19 18:25] VITALS: BP 164/86; PULSE 88; RESP 16; TEMP 36.6; O2SAT 100
[2022-04-19] MEDS: metroNIDAZOLE 500 MG/ISO 100ML 500 MG/100 ML BAG 100 MG IVPB (18:55)
[2022-04-19 20:23] LABS: Basophils Absolute Auto 0.1 K/mm3 (0.0-0.1); Basophils Percent Auto 0.4 % (0.2-1.2); Eosinophils Absolute Auto 0.2 K/mm3 (0-0.3); Eosinophils Percent Auto 1.3 % (0-4.4); Hematocrit 31.2 % (37.0-47.0); Hemoglobin 10.1 g/dL (12.0-15.0); Immature Granulocyte Absolute 0.13 K/mm3 (0.00-0.031); Lymphocytes Absolute Auto 2.24 K/mm3 (0.9-3.2); Lymphocytes Percent Auto 16.8 % (18.3-44.2); Mean Corpuscular HGB Conc 32.4 g/dl (32-36); Mean Corpuscular Hemoglobin 30.7 pg (26-34); Mean Corpuscular Volume 94.8 fl (80-100); Mean Platelet Volume 9.2 fl (7.4-10.4); Monocytes Absolute Auto 0.9 K/mm3 (0.1-0.6); Neutrophils Absolute Auto 9.8 K/mm3 (1.3-6.7); Neutrophils Percent Auto 73.5 % (45.5-73.1); Platelet Count Result 319 k/mm3 (150-375); Red Blood Count 3.29 M/mm3 (4.2-5.4); Red Cell Distribution Width 12.5 % (11.5-14.5); White Blood Count 13.3 K/mm3 (4.5-10.0)
[2022-04-19 20:34] LABS: Estimated CRCL calculation 173 ml/min; Estimated Glomerular Filt Rate > 60
[2022-04-19 20:42] LABS: Alanine Aminotransferase 27 U/L (6-35); Albumin Level 2.8 g/dL (3.5-5.1); Alkaline Phosphatase 134 U/L (38-126); Anion Gap 8 mmol/L (8-16); Aspartate Amino Transferase 20 U/L (14-36); Bilirubin,Total 0.1 mg/dL (0.2-1.3); Blood Urea Nitrogen 10 mg/dL (7-17); Calcium 8.1 mg/dL (8.4-10.2); Carbon Dioxide 28 mmol/L (22-30); Chloride 103 mmol/L (98-107); Estimated CRCL calculation 173 ml/min; Estimated Glomerular Filt Rate > 60; Glucose 120 mg/dL (65-110); Potassium 3.3 mmol/L (3.4-5.0); Sodium 139 mmol/L (137-145)
[2022-04-19] MEDS: oxyCODONE HCL (*CRX) 5 MG TAB IR PO (21:07)
[2022-04-19 21:39] VITALS: BP 132/95; PULSE 91; RESP 18; TEMP 36.9; O2SAT 98
[2022-04-19] MEDS: POTASSIUM CHLORIDE INJ 40 MEQ in SODIUM CHLORIDE 0.9% IV 500 ML 130 MEQ IVPB (22:37)
[2022-04-20] VITALS (10 sets, daily range): BP systolic 122–136; BP diastolic 82–97; PULSE 79–100; RESP 12–20; TEMP 36.7–36.8; O2SAT 94–100
[2022-04-20] MEDS: HYDROcodone/acetaminophen (*CRX) 5-325 MG TABLET 2 TAB PO (00:25)
[2022-04-20] MEDS: AMPICILLIN 2 GM/NS 100 ML 2 GM/100 ML BAG IVPB ×3 (04:35→15:48)
[2022-04-20] MEDS: metroNIDAZOLE 500 MG/ISO 100ML 500 MG/100 ML BAG 100 MG IVPB ×2 (05:21→17:20)
[2022-04-20 06:30] LABS: Hematocrit 32.3 % (37.0-47.0); Hemoglobin 10.4 g/dL (12.0-15.0); Mean Corpuscular HGB Conc 32.2 g/dl (32-36); Mean Corpuscular Hemoglobin 30.9 pg (26-34); Mean Corpuscular Volume 95.8 fl (80-100); Mean Platelet Volume 9.7 fl (7.4-10.4); Platelet Count Result 380 k/mm3 (150-375); Red Blood Count 3.37 M/mm3 (4.2-5.4); Red Cell Distribution Width 12.9 % (11.5-14.5); White Blood Count 13.6 K/mm3 (4.5-10.0)
[2022-04-20 07:12] LABS: Alanine Aminotransferase 24 U/L (6-35); Albumin Level 2.8 g/dL (3.5-5.1); Alkaline Phosphatase 133 U/L (38-126); Anion Gap 8 mmol/L (8-16); Aspartate Amino Transferase 18 U/L (14-36); Bilirubin,Total 0.2 mg/dL (0.2-1.3); Blood Urea Nitrogen 8 mg/dL (7-17); Calcium 8.6 mg/dL (8.4-10.2); Carbon Dioxide 25 mmol/L (22-30); Chloride 103 mmol/L (98-107); Estimated CRCL calculation 173 ml/min; Estimated Glomerular Filt Rate > 60; Glucose 84 mg/dL (65-110); Potassium 3.5 mmol/L (3.4-5.0); Sodium 136 mmol/L (137-145)
--- NOTE | 2022-04-20 07:35 | WPDANESEPPF ---
Anes - Initial Pre Proc Eval Procedure: Operation Date: 04/20/22 08:00 Proposed Procedures p Incision And Drainage Subcutaneous Abdominal Wound Abscess - Nba Hernandez MD Date/Time: 04/20/22 07:35 Surgeon: Nba Hernandez MD Pre Op Diagnosis: abdominal wound abscess Pre Op Diagnosis: abscess Patient Data Age: 22 Gender: F Height: 1.75 m Weight: 115.7 kg Last Vital Signs Temp 36.8 C 04/20/22 05:57 Pulse 100 04/20/22 05:57 Resp 18 04/20/22 05:57 BP 130/90 04/20/22 05:57 Pulse Ox 100 04/20/22 05:57 O2 Del Method Room Air 04/19/22 20:00 Allergies Allergy/AdvReac Type Severity Reaction Status Date / Time trazodone Allergy Intermediate Swelling Verified 04/12/22 18:33 Home Medications Medication Instructions Recorded Confirmed Type ondansetron 4 mg disintegrating 4 mg QID PRN Nausea 04/05/22 04/19/22 History tablet vits 75-iron 28 mg-folic 1 pkg PO DAILY 04/05/22 04/19/22 History acid 800 mcg-omega3 440 mg oral pack hydrocodone 5 mg-acetaminophen 325 1 tablet PO Q4H PRN pain #25 tabs 04/17/22 04/19/22 Rx mg tablet nystatin 100,000 unit/mL oral 5 ml PO QID 04/19/22 04/19/22 History suspension Laboratory Tests 04/19/22 04/19/22 04/19/22 18:05 20:13 20:13 WBC 13.3 K/mm3 H K/mm3 (4.5-10.0) RBC 3.29 M/mm3 L M/mm3 (4.2-5.4) Hgb 10.1 g/dL L g/dL (12.0-15.0) Hct 31.2 % L % (37.0-47.0) MCV 94.8 fl fl (80-100) MCH 30.7 pg pg (26-34) MCHC 32.4 g/dl g/dl (32-36) RDW 12.5 % % (11.5-14.5) Plt Count 319 k/mm3 k/mm3 (150-375) MPV 9.2 fl fl (7.4-10.4) Immature Gran % (Auto) 1.0 % H % (0-0.5) Neut % (Auto) 73.5 % H % (45.5-73.1) Lymph % (Auto) 16.8 % L % (18.3-44.2) Foard % (Auto) 7.0 % % (2.6-8.5) Eos % (Auto) 1.3 % % (0-4.4) Baso % (Auto) 0.4 % % (0.2-1.2) Lymph # (Auto) 2.24 K/mm3 K/mm3 (0.9-3.2) Foard # (Auto) 0.9 K/mm3 H K/mm3 (0.1-0.6) Eos # (Auto) 0.2 K/mm3 K/mm3 (0-0.3) Baso # (Auto) 0.1 K/mm3 K/mm3 (0.0-0.1) Abs Immat Gran (auto) 0.13 K/mm3 H K/mm3 (0.00-0.031) Absolute Neuts (auto) 9.8 K/mm3 H K/mm3 (1.3-6.7) Absolute Nucleated RBC 0.0 K/mm3 K/mm3 (0.0-0.012) Nucleated RBC % 0.0 % % (0.0-0.2) Sodium Potassium Chloride Carbon Dioxide Anion Gap BUN Creatinine 0.60 mg/dL L mg/dL 0.60 mg/dL L mg/dL (0.7-1.0) (0.7-1.0) Estim Creat Clear Calc 173 ml/min ml/min 173 ml/min ml/min Estimated GFR > 60 > 60 (59 - ) (59 - ) Glucose Calcium Total Bilirubin AST ALT Alkaline Phosphatase Total Protein Albumin 04/19/22 04/20/22 04/20/22 20:13 05:31 05:31 WBC 13.6 K/mm3 H K/mm3 (4.5-10.0) RBC 3.37 M/mm3 L M/mm3 (4.2-5.4) Hgb 10.4 g/dL L g/dL (12.0-15.0) Hct 32.3 % L % (37.0-47.0) MCV 95.8 fl fl (80-100) MCH 30.9 pg pg (26-34) MCHC 32.2 g/dl g/dl (32-36) RDW 12.9 % % (11.5-14.5) Plt Count 380 k/mm3 H k/mm3 (150-375) MPV 9.7 fl fl (7.4-10.4) Immature Gran % (Auto) Neut % (Auto) Lymph % (Auto) Foard % (Auto) Eos % (Auto) Baso % (Auto) Lymph # (Auto) Foard # (Auto) Eos # (Auto) Baso # (Auto) Abs Immat Gran (auto) Absolute Neuts (auto) Absolute Nucleated RBC Nucleated RBC % Sodium 139 mmol/L mmol/L 136 mmol/L L mmol/L (137-145) (137-145) Potassium 3.3 mmol/L L mmol/L 3.5 mmol/L mmol/L
--- NOTE | 2022-04-20 07:38 | PM.IMHP ---
H&P: [facility] History of Present Illness Date/Time: 04/20/22 07:38 Chief Complaint: pubic pain Narrative: This patient is a 22-year-old 1 para 1 at 1 week postop from a delivery. She began having pubic pain and swelling in the mons pubis. She denies any fevers, nausea, vomiting, chills. She denies any chest pain, shortness of breath. She denies any vaginal bleeding. Review of Systems Review of Systems: All systems reviewed & are unremarkable except as noted in HPI and below Constitutional: Constitutional: Denies chills, Denies fatigue, Denies fever(s) and Denies weakness Eyes: Eyes: Denies blurry vision, Denies change in vision, Denies loss of peripheral vision, Denies loss of vision, Denies other visual disturbances and Denies eye pain ENT: Denies vertigo, Denies dizziness, Denies hearing loss, Denies mouth pain, Denies nasal obstruction, Denies neck mass and Denies neck pain Cardiovascular: Cardiovascular: Denies chest pain, Denies diaphoresis, Denies syncope, Denies leg edema and Denies dyspnea Respiratory: Respiratory: Denies chest congestion, Denies cough, Denies hemoptysis, Denies dyspnea and Denies wheezing Gastrointestinal: Gastrointestinal: Denies abdominal pain, Denies constipation, Denies diarrhea, Denies nausea and Denies vomiting Genitourinary: Genitourinary: Denies hematuria, Denies change in libido, Denies nocturia, Denies genital lesions, Denies flank pain and Denies urinary urgency Musculoskeletal: Musculoskeletal: Denies abnormal gait, Denies back pain, Denies myalgias, Denies arthralgias, Denies joint swelling, Denies muscle weakness and Denies neck pain Integumentary/Breasts: Skin/Breast: Denies swelling, Denies breast pain, Denies breast mass, Denies dry skin, Denies nipple discharge, Denies unusual bruising and Denies jaundice Neurologic: Denies Neuro-related abnormal movements, Denies Abnormal speech present, Denies abnormal gait, Denies behavioral changes, Denies confusion, Denies vertigo, Denies dizziness, Denies syncope, Denies loss of vision, Denies memory loss, Denies convulsions and Denies weakness Psychiatric: Psychiatric: Denies abnormal sleep pattern, Denies behavioral changes, Denies change in libido, Denies confusion, Denies depression, Denies anhedonia and Denies memory loss Endocrine: Endocrine: Reports no additional endocrine complaints, Denies change in libido and Denies fatigue Hematologic/Lymphatic: Hematologic/Lymphatic: Reports no additional hematologic/lymphatic complaints Allergic/Immunologic: Allergic/Immunologic: Reports no additional allergic/immunologic complaints and Denies wheezing PMFSH Past Medical History Medical History Anxiety Depression Insomnia PTSD (post-traumatic stress disorder) Self-injurious behavior Surgical History Surgical History History of dilation and curettage Social History Social History Smoking packs per day: 0.25 Smoking cigarettes per day: 5.0 Years smoked: 6 Smoking pack-years: 1.50 Smoking status: Current every day smoker Tobacco type: cigarettes Second hand tobacco smoke exposure: Yes Alcohol intake: never Substance use: never Substance use type: does not use Spiritual care concerns: No Meds Home Medications and Allergies Home Medications Medication Instructions Recorded Confirmed Type ondansetron 4 mg disintegrating 4 mg QID PRN Nausea 04/05/22 04/19/22 History tablet vits 75-iron 28 mg-folic 1 pkg PO DAILY 04/05/22 04/19/22 History acid 800 mcg-omega3 440 mg oral pack hydrocodone 5 mg-acetaminophen 325 1 tablet PO Q4H PRN pain #25 tabs 04/17/22 04/19/22 Rx mg tablet nystatin 100,000 unit/mL oral 5 ml PO QID 04/19/22 04/19/22 History suspension Allergies Allergy/AdvReac Type Severity Reaction Status Date / Time trazodone Allergy Intermediate Sw
--- NOTE | 2022-04-20 07:42 | P.PNAN_ITS ---
Anes - Eval Final PreProcedure Day of Procedure 04/20/22 07:42 Patient weight: obese Heart: regular rate and rhythm Lungs: clear to auscultation and normal air movement Airway: Mallampati scale class II Neurological: alert and oriented Last oral intake: >/= 8 hours ASA classification: III Emergent: no Anesthetic plan: proceed Anesthesia type and monitoring: general GIVS and LMA and standard monitoring Results Review: All pre-operative results and documents have been reviewed as part of the pre- operative evaluation. Informed Consent: The patient's anesthetic plan and its attendant risks and benefits were discussed with the patient/family/POA. Questions were solicited and answers provided to the satisfaction of the patient/family/POA.
--- NOTE | 2022-04-20 07:43 | WPDHPUPDATE1 ---
History and Physical Update Update Date/Time: 04/20/22 07:43 History and Physical has been reviewed, including an updated exam of the patient. There are NO changes in the patient's condition. Risks, benefits, and alternatives have been discussed and questions answered. Patient agrees to proceed with procedure.
[2022-04-20] MEDS: LACTATED RINGERS 1,000 ML 30 ML IV CONT (08:24)
[2022-04-20] MEDS: fentaNYL CITRATE INJ (*CRX) 100 MCG/2 ML VIAL 25 MCG IV PUSH ×3 (08:35→08:42)
--- NOTE | 2022-04-20 08:40 | W.PM.PROC2 ---
Procedure Note - Detailed Date of Procedure 04/20/22 Pre-op Diagnosis Postoperative wound abscess Post-op Diagnosis Same Procedure Performed debridement of surgical wound Surgeon Nba Hernandez MD Anesthesia General Indications postoperative wound abscess. Findings Subcutaneous fluid collection that was purulent, hydration of the suprapubic area /mons Description of Procedure the patient states the operating room. She was prepped and draped in the dorsal spine position. The low-transverse skin incision was opened with a scalpel. The subcutaneous fat contained a fluid collection that was slightly purulent. The area was irrigated the wound was irrigated and the surfaces were debrided with a towel. Copious irrigation was used. The wound was packed with Kerlix containing 50 50 the peroxide and normal saline. The procedure was completed. The patient was taken to recovery room stable condition. Estimated Blood Loss -5.0 Urine Output 400 Complications No immediate complications Condition Stable Disposition Floor
[2022-04-20] MEDS: DEXTROSE 5%/LACTATED RINGERS 1,000 ML 125 ML IV CONT (10:39)
[2022-04-20] MEDS: HYDROcodone/acetaminophen (*CRX) 5-325 MG TABLET 1 TAB PO ×2 (12:36→17:39)
--- NOTE | 2022-05-05 16:27 | P.DS_ITS ---
DS: Admitting Diagnosis Discharge Date 04/20/22 Admitting Diagnosis Obstetric wound complication DS: Summary Hospital Course Hospital Course: patient is a 22-year-old female who is approximately 1 week from delivery. She developed a wound abscess. It was opened and debrided in the operating room. She was admitted for short period of observation and IV antibiotics. She was discharged home shortly after the procedure with short- term follow-up in wound care. Time Spent with Patient Time attestation: Total time spent providing and/or coordinating discharge services: Discharge Plan Discharge Consulting providers: Johnson Soria Discharging Clinician: Nba Hernandez Patient Disposition: Home, Self-Care Activity: pelvic rest Diet: regular Patient Instructions: Antibiotic Form Stand Alone Forms: General Discharge Information Follow-up/Referrals: Nba Hernandez MD [Physician] - Discharge Medications: New oxycodone-acetaminophen 5-325 mg tablet 1 tablet PO Q4H PRN (Reason: pain) Qty: 14 0RF levofloxacin 500 mg tablet 500 mg PO DAILY Qty: 10 5RF metronidazole 500 mg tablet 500 mg PO Q12H Qty: 20 0RF Continued ondansetron 4 mg tablet,disintegrating 4 mg QID PRN (Reason: Nausea) [id number] fum-folic [id number] [id number] mg-mcg-mg Combo Pack 1 pkg PO DAILY hydrocodone-acetaminophen 5-325 mg tablet 1 tablet PO Q4H PRN (Reason: pain) Qty: 25 0RF nystatin 100,000 unit/mL suspension 5 ml PO QID Rx Instructions: swish and spit Date of admission: 04/19/22 15:04 Primary Care Provider: PHYSICIAN,[employer] Admitting Provider: Nba Hernandez Attending physician on admission: Nba Hernandez Condition: Stable
--- NOTE | 2022-05-05 17:47 | PM.OBTRLD ---
OB - Triage/Final Diagnosis Visit Information Comments/Additional reasons for admission: I have assessed the risk for this patient, Dorcas Queen, and determined that she would benefit from observation care. Evaluation Laboratory results: Laboratory Tests 04/19/22 04/19/22 04/19/22 18:05 20:13 20:13 WBC 13.3 H RBC 3.29 L Hgb 10.1 L Hct 31.2 L MCV 94.8 MCH 30.7 MCHC 32.4 RDW 12.5 Plt Count 319 MPV 9.2 Immature Gran % (Auto) 1.0 H Neut % (Auto) 73.5 H Lymph % (Auto) 16.8 L [place] % (Auto) 7.0 Eos % (Auto) 1.3 Baso % (Auto) 0.4 Lymph # (Auto) 2.24 [place] # (Auto) 0.9 H Eos # (Auto) 0.2 Baso # (Auto) 0.1 Abs Immat Gran (auto) 0.13 H Absolute Neuts (auto) 9.8 H Absolute Nucleated RBC 0.0 Nucleated RBC % 0.0 Sodium Potassium Chloride Carbon Dioxide Anion Gap BUN Creatinine 0.60 L 0.60 L Estim Creat Clear Calc 173 173 Estimated GFR > 60 > 60 Glucose Calcium Total Bilirubin AST ALT Alkaline Phosphatase Total Protein Albumin 04/19/22 04/20/22 04/20/22 20:13 05:31 05:31 WBC 13.6 H RBC 3.37 L Hgb 10.4 L Hct 32.3 L MCV 95.8 MCH 30.9 MCHC 32.2 RDW 12.9 Plt Count 380 H MPV 9.7 Immature Gran % (Auto) Neut % (Auto) Lymph % (Auto) [place] % (Auto) Eos % (Auto) Baso % (Auto) Lymph # (Auto) [place] # (Auto) Eos # (Auto) Baso # (Auto) Abs Immat Gran (auto) Absolute Neuts (auto) Absolute Nucleated RBC Nucleated RBC % Sodium 139 136 L Potassium 3.3 L 3.5 Chloride 103 103 Carbon Dioxide 28 25 Anion Gap 8 8 BUN 10 8 Creatinine 0.60 L 0.60 L Estim Creat Clear Calc 173 173 Estimated GFR > 60 > 60 Glucose 120 H 84 Calcium 8.1 L 8.6 Total Bilirubin 0.1 L 0.2 AST 20 18 ALT 27 24 Alkaline Phosphatase 134 H 133 H Total Protein 6.0 L 6.0 L Albumin 2.8 L 2.8 L Final Diagnosis (1) Amniotic fluid leaking: Code(s): O42.90 - Premature rupture of membranes, unspecified as to length of time between rupture and onset of labor, unspecified weeks of gestation Status: Acute
== END 2022-04-20 19:15 | disposition home or self-care (01) ==
PROVIDERS: Admitting Provider Obstetrics & Gynecology; Visit Provider Obstetrics & Gynecology
PROC: 0UT94ZZ Resection of Uterus, Percutaneous Endoscopic Approach (ICD-10-PCS; CPT 10060; principal; 2022-04-20 08:00)
DX: O86.01 Infection of obstetric surgical wound, superficial incisional site (principal); G89.18 Other acute postprocedural pain; F41.9 Anxiety disorder, unspecified; F32.A Depression, unspecified; G47.00 Insomnia, unspecified; F43.10 Post-traumatic stress disorder, unspecified; F17.210 Nicotine dependence, cigarettes, uncomplicated; Z79.891 Long term (current) use of opiate analgesic; Z79.899 Other long term (current) drug therapy
CPT/HCPCS: 10060; 36415; 74177; 80053; 82565; 85025; 85027; 87070; 87075; 87076; 87077; 87186; 87205; 96361; 96365; 96366; 96367; 96375; A9270; G0378; G0379; J0290; J1170; J2250; J2405; J2704; J3010; J3480; J7040; J7120; J7121; Q9967

== ENCOUNTER 2022-06-14 07:38 | Outpatient (RCR) | payer OTHER, SELFPAY ==
[2022-04-26 13:25] VITALS: BMI 37.6
--- NOTE | 2022-06-07 12:59 | PCWOUND ---
CWON NOTE Patient did not show up for her appointment. No call was made to cancel or reschedule the appointment.
== END 2022-07-15 08:08 | disposition home or self-care (01) ==
LOC: ANHWOC 07:38
PROVIDERS: Visit Provider Obstetrics & Gynecology
DX: O86.00 Infection of obstetric surgical wound, unspecified (principal)
CPT/HCPCS: 97606; 99211; 99212; 99213; A9270; G0463

== ENCOUNTER 2022-09-22 21:16 | Emergency (ER) | payer OTHER, SELFPAY ==
--- NOTE | 2022-09-22 21:54 | PC.NURSE ---
Pt called for triage, no answer
--- NOTE | 2022-09-22 22:06 | PC.NURSE ---
Pt called for triage, no answer
== END 2022-09-23 03:24 | disposition left against medical advice (07) ==
LOC: ANHED 22:13
DX: Z53.21 Procedure and treatment not carried out due to patient leaving prior to being seen by health care provider (principal)
CPT/HCPCS: 99199

== ENCOUNTER 2023-03-03 11:26 | Emergency (ER) | payer OTHER, SELFPAY ==
[2023-03-03 11:41] VITALS: BP 119/75; PULSE 80; RESP 18; TEMP 36.2; O2SAT 98
[2023-03-03 11:42] VITALS: BP 119/75; PULSE 80; RESP 18; TEMP 36.2; O2SAT 98
--- NOTE | 2023-03-03 11:59 | ED.URI ---
HPI - URI/Sore Throat General Chief Complaint: Upper Respiratory Infection Stated Complaint: sorethroat Time Seen by Provider: 03/03/23 11:34 Source: patient Mode of arrival: ambulatory Limitations: no limitations History of Present Illness HPI Narrative: 23-year-old female presents to [facility] with complaints of sore throat and bilateral swollen tonsils for the past week. Patient reports that she had strep throat approximately 1 month ago. Patient has been using [id number] Chloraseptic spray with minimal relief. Patient denies fever, body aches, chills, ear pain, nausea vomiting or diarrhea. Patient denies sick contacts. Patient denies recent travel. Patient is a smoker. MD elicited complaint: sore throat Onset (ago): day(s) (7) Consistency: constant Able to tolerate fluids by mouth: Yes Exacerbating factors: swallowing Treatments prior to arrival: other (Chloraseptic spray) Related Data Home Medications Medication Instructions Recorded Confirmed ondansetron 4 mg disintegrating 4 mg QID PRN Nausea 04/05/22 04/26/22 tablet vits 75-iron 28 mg-folic 1 pkg PO DAILY 04/05/22 04/26/22 acid 800 mcg-omega3 440 mg oral pack nystatin 100,000 unit/mL oral 5 ml PO QID 04/19/22 04/26/22 suspension norethindrone acetate 1.5 1 tablet PO DAILY 03/03/23 03/03/23 mg-ethinyl estradiol 30 mcg tablet () Allergies Allergy/AdvReac Type Severity Reaction Status Date / Time trazodone Allergy Intermediate Swelling Verified 03/03/23 11:41 Review of Systems Constitutional: Constitutional: Denies chills, Denies fatigue, Denies fever(s) and Denies weakness ENT: Reports sore throat Cardiovascular: Cardiovascular: Denies chest pain Respiratory: Respiratory: Denies cough, Denies dyspnea and Denies wheezing Gastrointestinal: Gastrointestinal: Denies diarrhea, Denies nausea and Denies vomiting Integumentary/Breasts: Skin/Breast: Denies erythema and Denies rash Allergic/Immunologic: Allergic/Immunologic: Denies lip swelling, Denies throat swelling, Denies tongue swelling and Denies wheezing PMFSH Past Medical History Medical History Anxiety Depression Insomnia PTSD (post-traumatic stress disorder) Self-injurious behavior Surgical History Surgical History History of dilation and curettage Social History Social History Smoking packs per day: 0.25 Smoking cigarettes per day: 5.0 Years smoked: 6 Smoking pack-years: 1.50 Smoking status: Current every day smoker Tobacco type: cigarettes Second hand tobacco smoke exposure: Yes Alcohol intake: never Substance use: never Substance use type: does not use Living arrangements: with family Occupation/Education: student Spiritual care concerns: No Comments At time of signature, I agree with nursing past medical, surgical, social and family history. There is no relevant family history pertinent to the presenting complaint. Exam Const: General: healthy appearing and no acute distress Nutritional Appearance: well nourished Orientation/consciousness: patient oriented x3 Limitations: no limitations HENMT: Head: normal to inspection Ears: external ears normal and TM's normal bilaterally Face/Nose/Sinus: Normal external nose present Mouth: Yes Normal oral and palatal mucosa present and Yes moist mucous membranes Teeth and gingiva: dentition normal Throat: uvula midline Other: 1+ swelling and mild erythema noted to bilateral tonsils. No exudate or peritonsillar abscess noted. Uvula is midline. Eyes: Conjunctivae: conjunctivae normal Neck: Neck: normal visual inspection Resp: Effort & Inspection: normal respiratory effort and not labored Auscultation: clear to auscultation bilaterally, no crackles, no rales, no rhonchi and no wheezes Cardio: Rate: regular rate Rhythm: regular rhythm Heart sounds
== END 2023-03-03 12:05 | disposition home or self-care (01) ==
PROVIDERS: Emergency Provider Nurse Practitioner Family
DX: J02.9 Acute pharyngitis, unspecified (principal); F17.210 Nicotine dependence, cigarettes, uncomplicated
CPT/HCPCS: 87081; 87880; 99213; G0463

== ENCOUNTER 2023-07-18 16:04 | Outpatient (CLI) | payer OTHER, SELFPAY ==
--- NOTE | ~2023-07-18 | US_ITS ---
US breast BI limited INDICATION: Bilateral breast tenderness. TECHNIQUE: Dedicated Limited bilateral breast ultrasound COMPARISON: No prior studies for comparison. FINDINGS: The breasts are composed of normal heterogeneous echotexture without focal solid or cystic mass. IMPRESSION: 1: Normal limited bilateral breast ultrasound. BI-RADS CATEGORY 1 - NEGATIVE Reviewed, dictated and finalized at location A.
== END 2023-07-18 16:05 | disposition home or self-care (01) ==
PROVIDERS: Visit Provider Nurse Practitioner
DX: N64.4 Mastodynia (principal)
CPT/HCPCS: 76642

== ENCOUNTER 2023-12-04 19:28 | Emergency (ER) | payer OTHER, SELFPAY ==
[2023-12-04 19:39] VITALS: BP 124/79; PULSE 77; RESP 18; TEMP 36.8; O2SAT 98
--- NOTE | 2023-12-04 19:42 | ECG_ITS ---
Measurements Intervals [place] Rate: 69 P: 46 MD: 140 QRS: 25 QRSD: 101 T: 19 QT: 370 QTc: 398 Interpretive Statements SINUS RHYTHM NONSPECIFIC T-WAVE ABNORMALITY- INFERIOR LEADS BORDERLINE ECG NO PREVIOUS ECG AVAILABLE FOR COMPARISON Electronically Signed On 12-05-2023 6:33:07 CDT by Giuseppe Mcguire D.O.
--- NOTE | 2023-12-04 20:44 | PC.NURSE ---
Patient left department after speaking to security stating I was electrocuted and I need to be seen by a doctor .
== END 2023-12-04 20:44 | disposition left against medical advice (07) ==
PROVIDERS: Emergency Provider Emergency Medicine
DX: T75.4XXA Electrocution, initial encounter (principal)
CPT/HCPCS: 93005; 99199